=== PATIENT | male | born 1965 | race African-American/Black ===

== ENCOUNTER 2021-02-16 21:44 | Emergency (ER) | payer MEDICAID ==
[~2021-02-16] VITALS: Ht 170.2 cm; Wt 78.0 kg
[2021-02-17] MEDS ORDERED: CEPH500C2 MT (01:17)
[2021-02-17 01:20] VITALS: BP 133/81
== END 2021-02-17 01:33 | disposition home or self-care (01) ==
LOC: ER 21:44
DX: L03.011 Cellulitis of right finger (principal); I10 Essential (primary) hypertension; R73.03 Prediabetes
CPT/HCPCS: 99281

== ENCOUNTER 2022-10-14 04:18 | Emergency (ER) | payer MEDICAID, OTHER ==
[~2022-10-14] VITALS: Ht 170.2 cm; Wt 75.8 kg
[~2022-10-14 04:18] MED LIST: CEPH500C2 MT
[2022-10-14 04:22] VITALS: BP 155/91
[2022-10-14] MEDS ORDERED: LOSARTAN POTASSIUM 25 MG TABLET PO ONE (05:15)
[2022-10-14] MEDS ORDERED: LOSA25TA26 MT ×2 (05:15)
[2022-10-14] MEDS ORDERED: LOSARTAN POTASSIUM 25 MG TABLET PO NR (05:30)
== END 2022-10-14 05:26 | disposition home or self-care (01) ==
LOC: ER 04:23
DX: I10 Essential (primary) hypertension (principal); Z76.0 Encounter for issue of repeat prescription; E11.9 Type 2 diabetes mellitus without complications
CPT/HCPCS: 99283; Z7610

== ENCOUNTER 2025-01-01 23:42 | Emergency (ER) | payer MEDICARE, OTHER ==
[~2025-01-01] VITALS: Ht 170.2 cm; Wt 70.0 kg
[~2025-01-01 23:42] MED LIST changes: +LOSA25TA26 MT
[2025-01-01 23:52] VITALS: O2SAT 98
[2025-01-02 00:26] VITALS: BP 143/90; PULSE 80; RESP 18; TEMP 36.7; O2SAT 100
[2025-01-02] MEDS ORDERED: BENZ100C86 MT (02:45)
== END 2025-01-02 03:34 | disposition home or self-care (01) ==
LOC: ER 23:57
DX: J06.9 Acute upper respiratory infection, unspecified (principal); B97.89 Other viral agents as the cause of diseases classified elsewhere; E11.9 Type 2 diabetes mellitus without complications; I10 Essential (primary) hypertension; Z79.899 Other long term (current) drug therapy
CPT/HCPCS: 71045; 93005; 99283